=== PATIENT | female | born 1955 | race Two or more races ===

== ENCOUNTER 2023-04-09 06:47 | Day surgery (SDC) | payer OTHER ==
[~2023-04-09 06:47] MED LIST: ALTACE10 MG PO; LOVAZA1 GM PO; SYNJARDY XR 121 EACH PO; SYNTHROID75 MCG PO; TOPROL XL50 M1 PO; VENOFLASH PO
[2023-04-09] MEDS ORDERED: PERCOCET 5-3251 EACH PO (08:37)
[2023-04-09] MEDS ORDERED: RECTICARE30 GM TOP (08:38)
== END 2023-04-09 13:10 | disposition home or self-care (01) ==
LOC: CIR.AMB 06:47
PROVIDERS: ATTEND Surgery
DX: K62.0 Anal polyp (principal); K62.1 Rectal polyp; K64.8 Other hemorrhoids; K64.2 Third degree hemorrhoids; Z20.822 Contact with and (suspected) exposure to COVID-19; Z88.0 Allergy status to penicillin